=== PATIENT | female | born 1995 | race Caucasian/White ===

== ENCOUNTER 2017-12-31 09:32 | Emergency (ER) | payer SELFPAY ==
[2017-12-31] MEDS ORDERED: SODIUM CHLORIDE 1,000 ML IV STA (09:46)
--- NOTE | 2017-12-31 09:52 | PDOC ---
History of Present Illness - General Stated Complaint: DETOX Time Seen by Provider: 12/31/17 09:37 History Source: Patient, [employer] - History of Present Illness Initial Comments: 12/31/17 10:30 limited hx given pt's current condition Past History - Past Medical History Allergies/Adverse Reactions: Allergies Allergy/AdvReac Type Severity Reaction Status Date / Time Penicillins Allergy Verified 12/31/17 10:09 Home Medications: Ambulatory Orders NK [No Known Home Medication] 12/31/17 Review of Systems - Review of Systems Able to Perform ROS?: No (2/2 pt's condition) *Physical Exam - Physical Exam Comments: 12/31/17 09:51 Disheveled young woman with gross soiled, dirty skin and nails HEENT: positive: Normal Voice Neck: positive: Supple Respiratory/Chest: positive: Lungs Clear, Normal Breath Sounds. negative: Respiratory Distress Cardiovascular: positive: Regular Rate, S1, S2 Gastrointestinal/Abdominal: positive: Soft. negative: Tender Extremity: positive: Other (possible track bernal to LUE) Integumentary: positive: Dry, Warm Neurologic: positive: Alert ED Treatment Course - LABORATORY CBC & Chemistry Diagram: 12/31/17 10:46 12/31/17 10:46 Medical Decision Making - Medical Decision Making 12/31/17 09:47 22-year-old female, unknown past medical history, only other encounter in [facility] was rehab in 2014, brought in by Aziza RAZA this a.m. after officer reported that they got a call that an individual was urinating on the street and acting bizzare. States when they arrived on scene, patient appeared to be responding to internal stimuli. On evaluation now, patient awake and verbal with mostly unintelligible speech and ranting about issues with her presumed boyfriend. When asked if she ingested any drugs or alcohol today, patient does not respond. Asked how she was feeling, if she had any medical complaints to which patient also did not respond to me. At some point during evaluation, patient fell asleep on stretcher See exam AMS 2/2 suspected ingestion Stable in ED -ekg -labs -utox -IVF -reassess 12/31/17 11:48 Lab called to report hemolyzed chemistry. I attempted to butterfly pt for 2nd specimen but pt currently refusing blood draw. Pt also refusing to give urine. Pt has mostly been sleeping in ED 12/31/17 13:44 Pt signed out to Dr Rodriguez pending reassessment *DC/Admit/Observation/Transfer Diagnosis at time of Disposition: Intoxication - Discharge Dispostion Disposition: HOME Condition at time of disposition: Fair - Referrals - Patient Instructions Printed Discharge Instructions: Getting Treatment for Drug Addiction Additional Instructions: Please follow up with your primary doctor within 1 week. Refrain from drinking or using other substances. - Post Discharge Activity
[2017-12-31 10:16] VITALS: TEMP 97.8; BMI 22.1
[2017-12-31 11:01] LABS: BASO % 0.5 % (0-2.0); EOS % 0.3 % (0-4.5); HEMATOCRIT 34.7 % (32.4-45.2); HEMOGLOBIN 11.9 GM/dL (10.7-15.3); LYMPH % 32.7 % (8-40); MCH 30.2 pg (25.7-33.7); MCHC 34.3 g/dl (32.0-36.0); MEAN CELL VOLUME 88.2 fl (80-96); MEAN PLT VOLUME 8.2 fl (7.5-11.1); MONO % 10.3 % (3.8-10.2); NEUT % 56.2 % (42.8-82.8); PLATELET COUNT 222 K/MM3 (134-434); RBC 3.94 M/mm3 (3.60-5.2); RDW 14.5 % (11.6-15.6); WHITE BLOOD COUNT 7.7 K/mm3 (4.0-10.0)
[2017-12-31 15:34] VITALS: BP 122/61; PULSE 62
--- NOTE | 2017-12-31 16:55 | PDOC ---
*Physical Exam - Vital Signs Last Vital Signs Temp Pulse Resp BP Pulse Ox 97.8 F 62 16 122/61 98 12/31/17 10:02 12/31/17 15:33 12/31/17 15:33 12/31/17 15:33 12/31/17 15:33 - Physical Exam Comments: 12/31/17 16:51 "GENERAL: awake, alert, NAD HEAD: No signs of trauma EYES: PERRLA, EOMI, sclera anicteric, conjunctiva clear ENT: Auricles normal inspection, hearing grossly normal, nares patent, oropharynx clear without exudates. Moist mucosa NECK: Nontender, no stepoffs, Normal ROM, supple, no lymphadenopathy, JVD, or masses LUNGS: Breath sounds equal, clear to auscultation bilaterally. No wheezes, and no crackles HEART: Regular rate and rhythm, normal S1 and S2, no murmurs, rubs or gallops ABDOMEN: Soft, nontender, normoactive bowel sounds. No guarding, no rebound. No masses EXTREMITIES: Normal range of motion, no edema. No clubbing or cyanosis. No cords, erythema, or tenderness NEUROLOGICAL: Cranial nerves II through XII intact. 5/5 strength and sensation in all extremities SKIN: + track bernal BUE, Warm, Dry, normal turgor, no rashes or lesions noted. ED Treatment Course - LABORATORY CBC & Chemistry Diagram: 12/31/17 10:46 12/31/17 10:46 - ADDITIONAL ORDERS Additional order review: Laboratory Results 12/31/17 10:46 Sodium Cancelled Potassium Cancelled Chloride Cancelled Carbon Dioxide Cancelled Anion Gap Cancelled BUN Cancelled Creatinine Cancelled Creat Clearance w eGFR Cancelled Random Glucose Cancelled Calcium Cancelled Total Bilirubin Cancelled AST Cancelled ALT Cancelled Alkaline Phosphatase Cancelled Total Protein Cancelled Albumin Cancelled Beta HCG, Quant Cancelled 12/31/17 10:46 RBC 3.94 MCV 88.2 MCHC 34.3 RDW 14.5 MPV 8.2 Neutrophils % 56.2 Lymphocytes % 32.7 Monocytes % 10.3 H Eosinophils % 0.3 Basophils % 0.5 - Medications Given in the ED: ED Medications Discontinued Medications Generic Name Dose Route Start Last Admin Trade Name Freq PRN Reason Stop Dose Admin Sodium Chloride 1,000 mls @ 1,000 mls/hr 12/31/17 09:46 12/31/17 10:46 Normal Saline - IV 12/31/17 10:45 Not Given ASDIR STA Medical Decision Making - Medical Decision Making 12/31/17 16:53 22 yo F who presents acutely intoxicated. Per EMS, pt admitted to smoking "something" earlier today. Pt however denies any substance or ETOH use. Pt at this time awake, alert, and clinically sober. Pt ambulatory with steady gait. Denies SI/HI. Pt does not appear to be responding to any internal stimuli at this time. Denies auditory or visual hallucinations. Exam with no signs of traumatic injury. I spoke with pt, who states that she is ready to leave and plans to take the bus home. Pt is well appearing, with normal vitals. Clinically stable for DC at this time. I discussed the physical exam findings, ancillary test results and final diagnoses with the patient. I answered all of the patient's questions. The patient was satisfied with the care received and felt comfortable with the discharge plan and treatment plan. The patient agrees to follow up with the primary care physician within 24-72 hours. *DC/Admit/Observation/Transfer Diagnosis at time of Disposition: Intoxication - Discharge Dispostion Disposition: HOME - Referrals - Patient Instructions Printed Discharge Instructions: Getting Treatment for Drug Addiction Additional Instructions: Please follow up with your primary doctor within 1 week. Refrain from drinking or using other substances. - Post Discharge Activity - Attestations Physician Attestion: 12/31/17 17:10 I, Dr. Marco Rodriguez MD, attest that this document has been prepared under my direction and personally reviewed by me in its entirety. I further attest, that it accurately reflects all work, treatment, procedures and medical decision -making performed by me.
== END 2017-12-31 18:33 | disposition home or self-care (01) ==
LOC: JER 09:32
DX: F19.129 Other psychoactive substance abuse with intoxication, unspecified (principal)
CPT/HCPCS: 36415; 85025; 99281-25

== ENCOUNTER 2018-07-03 14:27 | Inpatient (IN) | payer SELFPAY ==
[2018-07-03 14:34] VITALS: BMI 20.7
--- NOTE | 2018-07-03 16:55 | HP ---
COWS - Scale Resting Pulse: 1= [place] 81-100 Sweatin= Chills/Flushing Restless Observation: 3= Extraneous Movement Pupil Size: 1= Pupils >than Normal Bone or Joint Aches: 2= Severe Diffuse Aches Runny Nose/ Eye Tearin= Runny Nose/Eyes GI Upset > 30mins: 3= Vomiting/Diarrhea Tremor Observation: 2= Slight Tremor Visible Yawning Observation: 2= >3x During Session Anxiety or Irritability: 2=Irritable/Anxious Goose Flesh Skin: 0=Smooth Skin COWS Score: 19 CIWA Score Nausea/Vomitin Muscle Tremors: 2 Anxiety: 2 Agitation: 2 Paroxysmal Sweats: 1-Minimal Palms Moist Orientation: 0-Oriented Tacttile Disturbances: 1-Very Mild Itch/Numbness Auditory Disturbances: 1-Very Mild Visual Disturbances: 0-None Headache: 2-Mild CIWA-Ar Total Score: 13 - Admission Criteria [facility] Guidelines: Admission for Medically Managed Detox: Requires at least one of the followin. CIWA greater than 12 2. Seizures within the past 24 hours 3. Delirium tremens within the past 24 hours 4. Hallucinations within the past 24 hours 5. Acute intervention needed for co occurring medical disorder 6. Acute intervention needed for co occurring psychiatric disorder 7. Severe withdrawal that cannot be handled at a lower level of care (continued vomiting, continued diarrhea, abnormal vital signs) requiring intravenous medication and/or fluids 8. Patient presents the following: CIWA greater than 12 Admission Criteria Met: Admission criteria met Admission ROS S - [facility] Chief Complaint: i need to stop using heroin,xanax,alcohol,marijuana Allergies/Adverse Reactions: Allergies Allergy/AdvReac Type Severity Reaction Status Date / Time Penicillins Allergy Verified 07/03/18 17:19 History of Present Illness: this 23 years old female with heroin,alcohol,xanax,marijuana dependence,seeking help to stop using drug,withdrawal symptom, never been in detox before seizure withdrawal last 2 weeks ago nicotine dependence longest sobriety 9 months anxiety,depression,insomnia Exam Limitations: No Limitations - Ebola screening Have you been sick,other than usual withdrawal symptoms: No - Review of Systems Constitutional: Chills, Loss of Appetite, Malaise, Night Sweats, Changes in sleep, Weakness EENT: reports: Tearing, Nose Congestion Respiratory: reports: No Symptoms reported Cardiac: reports: Palpitations GI: reports: Diarrhea, Nausea, Vomiting, Abdominal cramping : reports: No Symptoms Reported Musculoskeletal: reports: Back Pain, Joint Pain, Muscle Pain, Joint Stiffness Integumentary: reports: Dryness Neuro: reports: Headache, Tremors Endocrine: reports: No Symptoms Reported Hematology: reports: No Symptoms Reported Psychiatric: reports: No Sypmtoms Reported, Judgement Intact, Mood/Affect Appropiate, Orientated x3, Anxious (insomnia), Depressed Patient History - Patient Medical History Hx Anemia: No Hx Asthma: No Hx Chronic Obstructive Pulmonary Disease (COPD): No Hx Cancer: No Hx Cardiac Disorders: No Hx Congestive Heart Failure: No Hx Hypertension: No Hx Hypercholesterolemia: No Hx Pacemaker: No HX Cerebrovascular Accident: No Hx Seizures: Yes (last 2 weeks ago) Hx Dementia: No Hx Diabetes: No Hx Gastrointestinal Disorders: No Hx Liver Disease: No Hx Genitourinary Disorders: No Hx Sexually Transmitted Disorders: No Hx Renal Disease (ESRD): No Hx Thyroid Disease: No Hx Human Immunodeficiency Virus (HIV): No (last 12/27 negagive) Hx Hepatitis C: No Hx Depression: Yes (anxiety) Hx Suicide Attempt: No Hx Bipolar Disorder: No Hx Schizophrenia: No Other Medical History: insomnia,no suicidal,no homicidal - Patient Surgical History Past Surgical History: No - PPD History Previous Implant?: Yes Documented Results: Negative w/o proof Implanted On Prior [facility] Admission?: No PPD to be Administered?: Yes - Reproductive History Patient is a Female of Child Bearing Age (11 -55 yrs old): Yes Last Menstrual Period: 04/24/17 Patient : No - Smoking Cessation Smoking history: Current every day smoker Have you smoked in the past 12 months: Yes Aproximately how many cigarettes per day: 5 Hx Chewing Tobacco Use: Yes Initiated information on smoking cessation: Yes 'Breaking Loose' booklet given: 07/03/18 - Substance & Tx. History Hx Alcohol Use: Yes Hx Substance Use: Yes Substance Use Type: Alcohol, Heroin, Marijuana, Tranquilizers Hx Substance Use Treatment: No - Substances Abused Heroin Route: Injection Frequency: Daily Amount used: 15 bags Age of first use: 16 Date of Last Use: 07/04/18 Alcohol Route: Oral Frequency: 3-6 times per week Amount used: 1 pint of whisky Age of first use: 13 Date of Last Use: 07/01/18 Alprazolam (Xanax) Route: Oral Frequency: Daily Amount used: 16 mgs Age of first use: 12 Date of Last Use: 07/02/18 Marijuana/Hashish Frequency: 3-6 times per week Amount used: 20$ Age of first use: 14 Date of Last Use: 07/02/18 Family Disease History - Family Disease History Family History: Denies Family Disease History: Other: Brother (dsa sober), Sister (alcohol sober) Admission Physical Exam [facility] - Vital Signs Vital Signs: Vital Signs - 24 hr 07/03/18 14:28 Temperature 96.0 F L Pulse Rate 99 H Respiratory 18 Rate Blood Pressure 121/67 - Physical General Appearance: Yes: Moderate Distress, Tremorous, Irritable, Sweating, Anxious HEENTM: Yes: Normal ENT Inspection, Pharynx Normal Respiratory: Yes: Lungs Clear, Normal Breath Sounds, No Respiratory Distress Neck: Yes: Within Normal Limits, Supple, Trachea in good position Breast: Yes: Breast Exam Deferred Cardiology: Yes: Within Normal Limits, Regular Rhythm, S1, S2 Abdominal: Yes: Within Normal Limits, Normal Bowel Sounds, Non Tender, Flat, Soft Genitourinary: Yes: Within Normal Limits Back: Yes: Muscle Spasm Musculoskeletal: Yes: full range of Motion, Back pain, Muscle Pain Extremities: Yes: Normal Capillary Refill, Normal Range of Motion, Tremors 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: 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: 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 NML intact, Fully Oriented, Alert, Motor Strength 5/5 Integumentary: Yes: Dry, Track [place] Lymphatic: Yes: Within Normal Limits - Diagnostic (1) Opioid dependence with withdrawal Current Visit: Yes Status: Acute (2) Uncomplicated sedative, hypnotic or anxiolytic withdrawal Current Visit: Yes Status: Acute (3) Cannabis dependence Current Visit: Yes Status: Acute (4) Nicotine dependence Current Visit: Yes Status: Acute (5) IVDU (intravenous drug user) Current Visit: Yes Status: Acute (6) Anxiety and depression Current Visit: Yes Status: Acute Cleared for Admission [facility] - Detox or Rehab [facility] Level of Care: Medically Managed Detox Regimen/Protocol: Methadone/Valium [facility] Breath Alcohol Content Breath Alcohol Content: 0 Urine Pregancy Test - Result Urine Test Results: Negative- NO Line Present Urine Drug Screen - Results Drug Screen Negative: No Urine Drug Screen Results: THC-Marijuana, DOMO-Cocaine, OPI-Opiates, BAR- Barbiturates, BZO-Benzodiazepines, FEN-Fentanyl
[2018-07-03] MEDS ORDERED: guaiFENesin/D-METHORPHAN HB 10 ML UNIT-DOSE CUPS PO PRN (18:01)
[2018-07-03] MEDS ORDERED: MAGNESIUM CITRATE 300 ML BOTTLE PO PRN (18:01)
[2018-07-03] MEDS ORDERED: MAGNESIUM HYDROX 2400MG/30ML ORAL SUSPENSION 30 ML CUP PO PRN (18:01)
[2018-07-03] MEDS ORDERED: P-EPHED 60MG/TRIPROLIDI 2.5MG TABLET PO PRN (18:01)
[2018-07-03] MEDS ORDERED: MAG HYDROX/AL HYDROX/SIMETH 30 ML UNIT-DOSE CUP PO PRN (18:01)
[2018-07-03] MEDS ORDERED: METHADONE HCL 10 MG TABLET (FOR DETOX USE ONLY) PO ONE ×2 (18:01→23:00)
[2018-07-03] MEDS ORDERED: LOPERAMIDE HCL 2 MG CAPSULE PO PRN (18:01)
[2018-07-03] MEDS ORDERED: MENTHOL/PHENOL 1 EACH UD MM PRN (18:01)
[2018-07-03] MEDS ORDERED: ACETAMINOPHEN 325 MG TABLET (FP) PO PRN (18:01)
[2018-07-03] MEDS ORDERED: diazePAM 5 MG TABLET PO ONE (18:01)
[2018-07-03 20:25] LABS: URINE APPEARANCE TURBID; URINE BILIRUBIN NEGATIVE (<2.0 mg/dL); URINE COLOR YELLOW; URINE GLUCOSE (UA) NEGATIVE (NEGATIVE); URINE KETONE NEGATIVE (NEGATIVE); URINE LEUK ESTERASE NEGATIVE (NEGATIVE); URINE NITRITE NEGATIVE (NEGATIVE); URINE PROTEIN 1+ (NEGATIVE); URINE UROBILINOGEN NEGATIVE mg/dL (0.2-1.0)
[2018-07-03 20:50] LABS: EPI CELLS FEW /HPF (FEW); URINE BACTERIA MANY /hpf (NONE SEEN); URINE MUCUS MANY
[2018-07-03] MEDS: diazePAM 5 MG TABLET PO SCH (22:05)
[2018-07-03] MEDS: CYCLOBENZAPRINE HCL 10 MG TABLET (FP) PO PRN (22:06)
[2018-07-03] MEDS: THIAMINE HCL 100 MG TABLET (FP) PO SCH (22:06)
[2018-07-03] MEDS: MELATONIN 5 MG TABLETS PO PRN (22:06)
[2018-07-03] MEDS: cloNIDine HCL 0.1 MG TABLET PO SCH (22:06)
[2018-07-04] MEDS: diazePAM 5 MG TABLET PO SCH ×3 (06:07→22:08)
[2018-07-04] MEDS ORDERED: METHADONE HCL 10 MG TABLET (FOR DETOX USE ONLY) PO SCH (10:00)
[2018-07-04] MEDS: diazePAM 5 MG TABLET PO PRN ×2 (10:21→19:02)
[2018-07-04] MEDS: cloNIDine HCL 0.1 MG TABLET PO SCH ×2 (10:21→22:08)
[2018-07-04] MEDS: NICOTINE 21 MG/24 HOURS TOPICAL PATCH TD SCH (10:22)
[2018-07-04] MEDS: PRENATAL VITAMINS W/ FOLIC ACID TABLET (FP) PO SCH (10:22)
[2018-07-04] MEDS: NICOTINE POLACRILEX 2 MG GUM BC PRN (10:23)
[2018-07-04 10:55] LABS: HEMATOCRIT 40.3 % (32.4-45.2); HEMOGLOBIN 12.8 GM/dL (10.7-15.3); MCH 28.6 pg (25.7-33.7); MCHC 31.9 g/dl (32.0-36.0); MEAN CELL VOLUME 89.6 fl (80-96); MEAN PLT VOLUME 8.7 fl (7.5-11.1); PLATELET COUNT 239 K/MM3 (134-434); RBC 4.49 M/mm3 (3.60-5.2); RDW 14.2 % (11.6-15.6); WHITE BLOOD COUNT 5.3 K/mm3 (4.0-10.0)
[2018-07-04 11:08] LABS: ALBUMIN 4.1 g/dl (3.4-5.0); ALK PHOS 65 U/L (45-117); ANION GAP 6 MMOL/L (8-16); BILIRUBIN,TOTAL 0.3 mg/dL (0.2-1); BLOOD UREA NITROGEN 15 mg/dL (7-18); CALCIUM 9.2 mg/dL (8.5-10.1); CHLORIDE 101 mmol/L (98-107); CO2 28 mmol/L (21-32); CREATININE 0.9 mg/dL (0.55-1.3); GLUCOSE,RANDOM 93 mg/dL (74-106); POTASSIUM 4.5 mmol/L (3.5-5.1); SGOT/AST 14 U/L (15-37); SGPT/ALT 9 U/L (13-61); SODIUM 136 mmol/L (136-145); TOT PROT 7.5 g/dl (6.4-8.2)
--- NOTE | 2018-07-04 12:06 | PN ---
[facility] CIWA - CIWA Score Nausea/Vomitin-No Nausea/No Vomiting Muscle Tremors: 4-Moderate,w/Arms Extend Anxiety: 4-Mod. Anxious/Guarded Agitation: 4-Moderately Restless Paroxysmal Sweats: 3 Orientation: 0-Oriented Tacttile Disturbances: 0-None Auditory Disturbances: 0-None Visual Disturbances: 0-None Headache: 0-None Present CIWA-Ar Total Score: 15 BHS COWS - Scale Resting Pulse: 0= [place] 80 or Below Sweatin=Flushed/Facial Moisture Restless Observation: 1= Difficult to Sit Still Pupil Size: 0= Normal to Room Light Bone or Joint Aches: 2= Severe Diffuse Aches Runny Nose/ Eye Tearin= Runny Nose/Eyes GI Upset > 30mins: 1= Stomach Cramp Tremor Observation of Outstretched Hands: 2= Slight Tremor Visible Yawning Observation: 2= >3x During Session Anxiety or Irritability: 2=Irritable/Anxious Goose Flesh Skin: 0=Smooth Skin COWS Score: 14 S Progress Note (SOAP) Subjective: sweats shakes interrupted sleep toothache chills agitation Objective: 07/04/18 12:04 Vital Signs Temperature 98.1 F 07/04/18 09:12 Pulse Rate 67 07/04/18 09:12 Respiratory Rate 18 07/04/18 09:12 Blood Pressure 103/57 L 07/04/18 09:12 O2 Sat by Pulse Oximetry (%) Laboratory Tests 07/03/18 07/04/18 07/04/18 18:20 07:45 07:45 WBC 5.3 RBC 4.49 Hgb 12.8 Hct 40.3 D MCV 89.6 MCH 28.6 MCHC 31.9 L RDW 14.2 Plt Count 239 MPV 8.7 Sodium 136 Potassium 4.5 Chloride 101 Carbon Dioxide 28 Anion Gap 6 L BUN 15 Creatinine 0.9 Creat Clearance w eGFR > 60 Random Glucose 93 Calcium 9.2 Total Bilirubin 0.3 AST 14 L ALT 9 L Alkaline Phosphatase 65 Total Protein 7.5 Albumin 4.1 Urine Color Yellow Urine Appearance Turbid Urine pH 5.0 Ur Specific [place] 1.028 Urine Protein 1+ H Urine Glucose (UA) Negative Urine Ketones Negative Urine Blood Negative Urine Nitrite Negative Urine Bilirubin Negative Urine Urobilinogen Negative Ur Leukocyte Esterase Negative Urine WBC (Auto) None Urine RBC (Auto) 4 Ur Epithelial Cells Few Urine Bacteria Many Urine Mucus Many aaox3 ambulating no acute distress Assessment: 07/04/18 12:05 withdrawal sx abscess noted to top back molar Plan: continue detox increase fluids lidocaine s/s cleocin 450mg q6hr x 7 days pt advised to visit dentist after detox. pt in agreement
[2018-07-04] MEDS: LIDOCAINE VISCOUS 2% ORAL/TOP 20 ML UNIT-DOSE CUP MM PRN ×2 (12:43→22:21)
[2018-07-04] MEDS: IBUPROFEN 400 MG TABLET (FP) PO PRN (12:44)
[2018-07-04] MEDS: CLINDAMYCIN HCL 150 MG CAPSULE (FP) PO SCH ×2 (13:26→17:02)
--- NOTE | 2018-07-04 15:53 | PN ---
[facility] Progress Note Note: Psychiatry Attending's note : Came to conduct psychiatric evaluation. Could not proceed with consult. Patient declines. " I am tired. I am not able to talk. Cannot see you now. Come back later ". In the meantime, the patient was observed ambulating in hallways, conversing. Seen more than once at the nurse's station, inquiring about medications. Consult deferred until this patient decides to see psychiatrist.
[2018-07-04] MEDS: CYCLOBENZAPRINE HCL 10 MG TABLET (FP) PO PRN (17:01)
[2018-07-04] MEDS: hydrOXYzine PAMOATE 50 MG CAPSULE (FP) PO PRN ×2 (17:01→22:10)
[2018-07-04] MEDS: THIAMINE HCL 100 MG TABLET (FP) PO SCH (22:10)
[2018-07-04] MEDS: MELATONIN 5 MG TABLETS PO PRN (22:10)
[2018-07-05] MEDS: CLINDAMYCIN HCL 150 MG CAPSULE (FP) PO SCH ×5 (00:06→23:36)
[2018-07-05] MEDS: diazePAM 5 MG TABLET PO PRN ×2 (05:30→15:14)
[2018-07-05] MEDS: IBUPROFEN 400 MG TABLET (FP) PO PRN (05:31)
[2018-07-05] MEDS: LIDOCAINE VISCOUS 2% ORAL/TOP 20 ML UNIT-DOSE CUP MM PRN (05:32)
[2018-07-05] MEDS: NICOTINE 21 MG/24 HOURS TOPICAL PATCH TD SCH (10:16)
[2018-07-05] MEDS: diazePAM 5 MG TABLET PO SCH ×2 (10:17→22:08)
[2018-07-05] MEDS: PRENATAL VITAMINS W/ FOLIC ACID TABLET (FP) PO SCH (10:17)
[2018-07-05] MEDS: NICOTINE POLACRILEX 2 MG GUM BC PRN ×2 (10:17→22:18)
[2018-07-05] MEDS: cloNIDine HCL 0.1 MG TABLET PO SCH ×2 (10:17→22:08)
[2018-07-05] MEDS: METHADONE HCL 5 MG TABLET (FOR DETOX USE ONLY) PO SCH (10:17)
--- NOTE | 2018-07-05 12:10 | PN ---
[facility] CIWA - CIWA Score Nausea/Vomitin Muscle Tremors: 2 Anxiety: 3 Agitation: 2 Paroxysmal Sweats: 3 Orientation: 0-Oriented Tacttile Disturbances: 1-Very Mild Itch/Numbness Auditory Disturbances: 0-None Visual Disturbances: 0-None Headache: 0-None Present CIWA-Ar Total Score: 14 S COWS - Scale Resting Pulse: 0= [place] 80 or Below Sweatin=Flushed/Facial Moisture Restless Observation: 1= Difficult to Sit Still Pupil Size: 1= Pupils >than Normal Bone or Joint Aches: 1= Mild Discomfort Runny Nose/ Eye Tearin= Nasal Congestion GI Upset > 30mins: 2= Nausea/Diarrhea Tremor Observation of Outstretched Hands: 1= Tremor [place], Not Seen Yawning Observation: 0= None Anxiety or Irritability: 2=Irritable/Anxious Goose Flesh Skin: 0=Smooth Skin COWS Score: 11 S Progress Note (SOAP) Subjective: interrupted sleep,sweats,shakes , loose stools Objective: 07/05/18 12:07 Vital Signs Temperature 97.7 F 07/05/18 09:28 Pulse Rate 69 07/05/18 09:28 Respiratory Rate 16 07/05/18 09:28 Blood Pressure 112/61 07/05/18 09:28 O2 Sat by Pulse Oximetry (%) Laboratory Tests 07/03/18 07/04/18 07/04/18 18:20 07:45 07:45 WBC 5.3 RBC 4.49 Hgb 12.8 Hct 40.3 D MCV 89.6 MCH 28.6 MCHC 31.9 L RDW 14.2 Plt Count 239 MPV 8.7 Sodium 136 Potassium 4.5 Chloride 101 Carbon Dioxide 28 Anion Gap 6 L BUN 15 Creatinine 0.9 Creat Clearance w eGFR > 60 Random Glucose 93 Calcium 9.2 Total Bilirubin 0.3 AST 14 L ALT 9 L Alkaline Phosphatase 65 Total Protein 7.5 Albumin 4.1 Urine Color Yellow Urine Appearance Turbid Urine pH 5.0 Ur Specific [place] 1.028 Urine Protein 1+ H Urine Glucose (UA) Negative Urine Ketones Negative Urine Blood Negative Urine Nitrite Negative Urine Bilirubin Negative Urine Urobilinogen Negative Ur Leukocyte Esterase Negative Urine WBC (Auto) None Urine RBC (Auto) 4 Ur Epithelial Cells Few Urine Bacteria Many Urine Mucus Many RPR Titer 07/04/18 07:45 WBC RBC Hgb Hct MCV MCH MCHC RDW Plt Count MPV Sodium Potassium Chloride Carbon Dioxide Anion Gap BUN Creatinine Creat Clearance w eGFR Random Glucose Calcium Total Bilirubin AST ALT Alkaline Phosphatase Total Protein Albumin Urine Color Urine Appearance Urine pH Ur Specific [place] Urine Protein Urine Glucose (UA) Urine Ketones Urine Blood Urine Nitrite Urine Bilirubin Urine Urobilinogen Ur Leukocyte Esterase Urine WBC (Auto) Urine RBC (Auto) Ur Epithelial Cells Urine Bacteria Urine Mucus RPR Titer Nonreactive pt aox3 in nad sitting in day room eatting breakfast. Assessment: 07/05/18 12:07 withdrawal sx's 07/05/18 12:08 pt not c/o painful toothache/abscess - to cont. clindamycin Plan: cont. detox increase fluids imodium prn
[2018-07-05] MEDS: hydrOXYzine PAMOATE 50 MG CAPSULE (FP) PO PRN ×2 (17:43→22:16)
[2018-07-05] MEDS: THIAMINE HCL 100 MG TABLET (FP) PO SCH (22:08)
[2018-07-05] MEDS: MELATONIN 5 MG TABLETS PO PRN (22:17)
[2018-07-06] MEDS: diazePAM 5 MG TABLET PO PRN (05:29)
[2018-07-06] MEDS: hydrOXYzine PAMOATE 50 MG CAPSULE (FP) PO PRN (05:29)
[2018-07-06] MEDS: CLINDAMYCIN HCL 150 MG CAPSULE (FP) PO SCH (05:29)
[2018-07-06 09:35] VITALS: BP 116/60; PULSE 60; TEMP 98.6
[2018-07-06] MEDS: METHADONE HCL 5 MG TABLET (FOR DETOX USE ONLY) PO SCH (10:05)
[2018-07-06] MEDS: PRENATAL VITAMINS W/ FOLIC ACID TABLET (FP) PO SCH (10:06)
[2018-07-06] MEDS: cloNIDine HCL 0.1 MG TABLET PO SCH (10:06)
[2018-07-06] MEDS: NICOTINE 21 MG/24 HOURS TOPICAL PATCH TD SCH (10:22)
[2018-07-06] MEDS: diazePAM 5 MG TABLET PO SCH (10:22)
--- NOTE | 2018-07-06 11:52 | PN ---
S Progress Note Note: pt states she wanted to signed out because she wants to go home and see her family.
--- NOTE | 2018-07-06 12:55 | DS ---
[facility] Detox Discharge Summary Admission Date: 07/03/18 - History Present History: Cannabis Dependence, Opioid Dependence, Sedative Dependence - Physical Exam Results Vital Signs: Vital Signs Temperature 98.6 F 07/06/18 09:34 Pulse Rate 60 07/06/18 09:34 Respiratory Rate 18 07/06/18 09:34 Blood Pressure 116/60 07/06/18 09:34 O2 Sat by Pulse Oximetry (%) - Treatment Hospital Course: Detox Protocol Followed, Detoxed Safely, Responded well, Discharged Condition Good, Rehab Referral Accepted - Medication Discharge Medications: Ambulatory Orders Alprazolam [Xanax] 1 mg PO BID 07/03/18 Trazodone HCl 150 mg PO HS 07/03/18 - Diagnosis (1) Anxiety and depression Status: Acute (2) Cannabis dependence Status: Chronic (3) IVDU (intravenous drug user) Status: Acute (4) Nicotine dependence Status: Chronic Qualifiers: Nicotine product type: cigarettes Substance use status: uncomplicated Qualified Code(s): F17.210 - Nicotine dependence, cigarettes, uncomplicated (5) Opioid dependence with withdrawal Status: Chronic (6) Uncomplicated sedative, hypnotic or anxiolytic withdrawal Status: Chronic (7) Intoxication Status: Acute - AMA Did Patient Leave Against Medical Advice: Yes (going home)
[2018-07-06] MEDS ORDERED: traZODone HCL 100 MG TABLET (FP) PO SCH (22:00)
[2018-07-07] MEDS ORDERED: diazePAM 5 MG TABLET PO SCH (10:00)
[2018-07-07] MEDS ORDERED: METHADONE HCL 10 MG TABLET (FOR DETOX USE ONLY) PO SCH (10:00)
[2018-07-08] MEDS ORDERED: METHADONE HCL 5 MG TABLET (FOR DETOX USE ONLY) PO SCH (06:00)
== END 2018-07-06 11:47 | disposition left against medical advice (07) | DRG 770 ==
LOC: YASAS 14:27 → Y6N 17:21
PROC: HZ2ZZZZ Detoxification Services for Substance Abuse Treatment (ICD-10-PCS; principal; 2018-07-03)
DX: F11.23 Opioid dependence with withdrawal (principal); F10.129 Alcohol abuse with intoxication, unspecified; F13.230 Sedative, hypnotic or anxiolytic dependence with withdrawal, uncomplicated; F12.20 Cannabis dependence, uncomplicated; F17.210 Nicotine dependence, cigarettes, uncomplicated; F41.8 Other specified anxiety disorders; K04.7 Periapical abscess without sinus; Z86.69 Personal history of other diseases of the nervous system and sense organs; Z88.0 Allergy status to penicillin
CPT/HCPCS: 36415; 80053; 81003; 81015; 85027; 86593; J0735